=== PATIENT | female | born 1985 | race Two or more races ===

== ENCOUNTER 2019-02-03 09:06 | Emergency (ER) | payer SELFPAY ==
[~2019-02-03] VITALS: Ht 172.7 cm; Wt 189.1 kg
[2019-02-03 09:45] VITALS: BP 149/101
[2019-02-03] MEDS ORDERED: ALBUTEROL SULF 2.5 MG/0.5ML(0.5%) NEB SOLN NEB ONE (10:30)
[2019-02-03] MEDS ORDERED: IPRATROPIUM BROM 0.5 MG/2.5ML INH SOL NEB ONE (10:30)
[2019-02-03 11:08] LABS: Basophils # (auto) 0 uL; Eosinophils # (auto) 0.2 uL; Hemoglobin 9.8 g/dL (12.2-16.2); Lymphocytes # (auto) 1.3 uL; Monocytes # (auto) 0.4 uL; White Blood Cell 6.4 10^3/uL (4.4-10.8)
[2019-02-03 11:09] LABS: Basophils % (auto) 0.4 % (0.0-2.0); Eosinophils % (auto) 3.6 % (0.0-7.0); Hematocrit 30.7 % (36.0-46.0); Lymphocytes % (auto) 20.5 % (10.0-50.0); Mean Corpuscular Hemoglobin 25.8 pg (28.0-32.0); Mean Corpuscular Hgb Conc. 31.9 g/dL (32.0-36.0); Mean Corpuscular Volume 80.8 fL (80.0-100.0); Neutrophils # (auto) 4.5 uL; Neutrophils % (auto) 69.5 % (37.0-80.0); Platelet Count (auto) 272 10^3/uL (140-450); Red Cell Distribution Width 17.8 % (11.8-14.3)
[2019-02-03 11:19] LABS: Albumin 3.1 g/dL (3.4-5.0); BUN/Creatinine Ratio 18.9; Calcium 8.4 mg/dL (8.5-10.1); Potassium 4.4 mmol/L (3.5-5.1)
[2019-02-03 11:21] LABS: Bilirubin, Total 0.5 mg/dL (0.2-1.0); Total Protein 7.5 g/dL (6.4-8.2)
[2019-02-03 11:22] LABS: Urine Bacteria NONE SEEN /hpf (None Seen); Urine Blood 3+ /uL (Negative); Urine Hyaline Cast FEW /lpf (0 - 2); Urine Mucus FEW (None Seen); Urine Specific Gravity 1.028 (1.001-1.035); Urine WBC 16 /hpf (0 - 5)
[2019-02-03] MEDS ORDERED: methylPREDNISolone SOD SUCC 125 MG/2 ML VL ONE (11:53)
[2019-02-03] MEDS ORDERED: methylPREDNISolone SOD SUCC 125 MG/2 ML VL IM ONE (12:00)
== END 2019-02-03 12:13 | disposition home or self-care (01) ==
LOC: ER 09:06
DX: J45.901 Unspecified asthma with (acute) exacerbation (principal); R60.0 Localized edema; E66.01 Morbid (severe) obesity due to excess calories; I50.9 Heart failure, unspecified; Z68.44 Body mass index [BMI] 60.0-69.9, adult
CPT/HCPCS: 36415; 71046; 80053; 81001; 83880; 85025; 94640; 96372; 99284; J2930; J7611; J7644

== ENCOUNTER 2019-05-14 06:12 | Emergency (ER) | payer MEDICAID ==
[~2019-05-14] VITALS: Ht 170.2 cm; Wt 181.4 kg
[2019-05-14 09:01] VITALS: BP 141/72
== END 2019-05-14 09:40 | disposition home or self-care (01) ==
LOC: ER 06:12
DX: J32.9 Chronic sinusitis, unspecified (principal); M79.89 Other specified soft tissue disorders; I50.9 Heart failure, unspecified; J45.909 Unspecified asthma, uncomplicated; Z88.0 Allergy status to penicillin
CPT/HCPCS: 70450